=== PATIENT | female | born 1955 | race American Indian/Alaskan Native ===

== ENCOUNTER 2021-02-26 08:50 | Inpatient (IN) | payer BC ==
[2021-02-26] MEDS ORDERED: ACETAMINOPHEN 500 MG TAB PO ONE (09:27)
--- NOTE | 2021-02-26 09:31 | Emergency Department Report ---
ED General Adult HPI - General Chief complaint: Chest Pain Stated complaint: CHEST PAIN, SOB, FINGER TIPS NUMB Time Seen by Provider: 02/26/21 09:15 Source: patient Mode of arrival: Ambulatory Limitations: No Limitations - History of Present Illness Initial comments: Patient is a 65 years old female with history of hypertension. Patient presented to the ER complaining of generalized body ache, fever and chills since last night. Patient also reported diffuse chest pain and shortness of breath. Patient denied any nausea or vomiting. Patient stated that she has been tested negative last week and she received COVID-19 vaccine in August. Patient denied any abdominal pain. Severity scale (0 -10): 6 - Related Data Allergies Allergy/AdvReac Type Severity Reaction Status Date / Time lisinopril Allergy Unknown Verified 02/26/21 09:00 ED Review of Systems ROS: Stated complaint: CHEST PAIN, SOB, FINGER TIPS NUMB Other details as noted in HPI Comment: All other systems reviewed and negative Constitutional: chills, fever Respiratory: cough, shortness of breath. denies: SOB with exertion, SOB at rest Cardiovascular: denies: chest pain, palpitations Gastrointestinal: denies: abdominal pain, nausea, vomiting, diarrhea, constipation, hematemesis, melena, hematochezia Musculoskeletal: denies: back pain Neurological: weakness. denies: headache, numbness, paresthesias, confusion ED Physical Exam - General Limitations: No Limitations General appearance: alert, in no apparent distress - Head Head exam: Present: atraumatic, normocephalic, normal inspection - Eye Eye exam: Present: normal appearance, PERRL - ENT ENT exam: Present: normal exam, normal orophraynx, mucous membranes moist - Neck Neck exam: Present: normal inspection, full ROM. Absent: tenderness, meningismus - Respiratory Respiratory exam: Present: normal lung sounds bilaterally - Cardiovascular Cardiovascular Exam: Present: regular rate, normal rhythm, normal heart sounds - GI/Abdominal GI/Abdominal exam: Present: soft. Absent: distended, tenderness, guarding, rebound, rigid, organomegaly, mass, bruit, pulsatile mass, hernia - Extremities Exam Extremities exam: Present: normal inspection, full ROM, normal capillary refill. Absent: pedal edema, calf tenderness - Back Exam Back exam: Present: normal inspection, full ROM. Absent: CVA tenderness (R), CVA tenderness (L) - Neurological Exam Neurological exam: Present: alert, oriented X3, CN II-XII intact, normal gait, reflexes normal. Absent: motor sensory deficit - Psychiatric Psychiatric exam: Present: normal mood - Skin Skin exam: Present: warm, intact, normal color ED Course Vital Signs 02/26/21 02/26/21 02/26/21 09:05 12:18 12:19 Temperature 101.4 F H 98.3 F Pulse Rate 103 H 64 Respiratory 18 12 Rate Blood Pressure Blood Pressure 147/72 109/55 [Right] O2 Sat by Pulse 100 99 98 Oximetry 02/26/21 02/26/21 13:10 14:17 Temperature 98.3 F 97.8 F Pulse Rate 64 73 Respiratory 12 12 Rate Blood Pressure 109/55 Blood Pressure 111/73 [Right] O2 Sat by Pulse 99 99 Oximetry ED Medical Decision Making - Lab Data Result diagrams: 02/26/21 09:58 02/26/21 09:58 - EKG Data -: EKG Interpreted by Id EKG shows normal: sinus rhythm Rate: tachycardia - EKG Data Interpretation: no acute changes - Radiology Data Radiology results: report reviewed - Medical Decision Making Patient is a 65 years old female with history of hypertension. Patient presented to the ER complaining of generalized body ache, fever and chills since last night. Patient also reported diffuse chest pain and shortness of breath. Patient denied any nausea or vomiting. Patient stated that she has been tested negative last week and she received COVID-19 vaccine in August. Patient denied any abdominal pain. Patient received normal saline and Tylenol. Labs reviewed and showed a leukocytosis of 18,000. Chest x-ray showed infiltrate versus mass and a CT chest with contrast showed consolidation to the left upper lobe consistent with pneumonia. Patient received Rocephin and Zithromax. Oxygen saturation remained normal. I discussed the patient with Dr. Shah, he agreed to admit the patient to medical service for further management. Critical care attestation.: If time is entered above; I have spent that time in minutes in the direct care of this critically ill patient, excluding procedure time. ED Disposition Clinical Impression: Left upper lobe pneumonia, Fever, Suspected COVID-19 virus infection Disposition: ADMITTED INPATIENT Is pt being admited?: Yes Condition: Stable Instructions: Bacterial Pneumonia (ED) Referrals: PRIMARY CARE, [Primary Care Provider] - 3-5 Days
--- NOTE | 2021-02-26 10:41 | XRay Report ---
CHEST 2 VIEWS INDICATION / CLINICAL INFORMATION: Chest Pain. COMPARISON: None available. FINDINGS: SUPPORT DEVICES: None. HEART / MEDIASTINUM: No significant abnormality. LUNGS / PLEURA: Abnormal appearance of left hilum with opacity identified. This is asymmetric when co mpared with the right. Mild increased interstitial prominence in bilateral lungs ADDITIONAL FINDINGS: No significant additional findings. IMPRESSION: 1. Abnormal appearance of left hilum. Findings could represent infiltrate however left hilar mass cou ld also have this appearance. A CT is recommended for further evaluation. Signer Name: Ranjit Cox MD Signed: 02/26/2021 10:33 AM Workstation Name: [id number]
[2021-02-26 11:06] LABS: Hematocrit 38.7 % (30.3-42.9); Hemoglobin 12.7 gm/dl (10.1-14.3); Mean Corpuscular HGB Conc 33 % (30-34); Mean Corpuscular Volume 87 fl (79-97); Platelet Count 213 K/mm3 (140-440); Red Blood Count 4.48 M/mm3 (3.65-5.03)
[2021-02-26 11:30] LABS: Alanine Aminotransferase 16 units/L (7-56); Albumin 3.8 g/dL (3.9-5); BUN/Creatinine Ratio 19; Blood Urea Nitrogen 17 mg/dL (7-17); Hemolysis Index 17
[2021-02-26] MEDS ORDERED: cefTRIAXone/NS 1 GM/50 ML 1 GM/50 ML BAG IV ONE (11:44)
[2021-02-26] MEDS ORDERED: AZITHROMYCIN/NS 500 MG/250 ML 500 MG/250 ML BAG IV ONE (11:44)
[2021-02-26] MEDS ORDERED: SODIUM CHLORIDE 0.9% 1000 ML 1,000 ML IV ONE (11:45)
[2021-02-26] MEDS ORDERED: AZITHROMYCIN/NS 500 MG/250 ML 500 MG/250 ML BAG IV SCH (14:00)
--- NOTE | 2021-02-26 14:35 | Cat Scan Report ---
CT CHEST WITH CONTRAST INDICATION / CLINICAL INFORMATION: CHEST PAIN, ABNORMAL CXR. 95ml of Omnipaque 350 . TECHNIQUE: Axial CT images were obtained through the chest after IV contrast. All CT scans at this [facility] are performed using CT dose reduction for ALARA by means of automated exposure control. COMPARISON: Chest radiograph earlier on the same date. FINDINGS: HEART: No significant abnormality. CORONARY ARTERY CALCIFICATION: Mild. THORACIC AORTA: Mild atherosclerotic calcification without acute abnormality. MEDIASTINUM / ZANDRA: No significant mediastinal or hilar adenopathy. PLEURA: No pleural effusion. No pneumothorax. LUNGS: Dense consolidation of the anterior left upper lobe corresponding to radiographic abnormality. No definite central obstructing mass. Left lower lobe and right lung are clear. Mild centrilobular p ulmonary emphysema. ADDITIONAL FINDINGS: None. UPPER ABDOMEN: Chronic calcific pancreatitis without acute inflammation. Multiple bilateral large caryn al cysts. Hepatic steatosis. SKELETAL SYSTEM: No significant abnormality. IMPRESSION: 1. Dense consolidation of the anterior left upper lobe. Inflammatory process/pneumonia is favored. Re peat chest CT after treatment is recommended to assess for resolution of the findings. If pneumonia d oes not fit the clinical picture, then additional testing such as bronchoscopy may be helpful for fur ther evaluation. 2. Hepatic steatosis and chronic calcific pancreatitis without acute inflammation. Signer Name: Dionne Horowitz MD Signed: 02/26/2021 2:31 PM Workstation Name: [id number]
[2021-02-26 15:18] LABS: Bilirubin,Urine NEG (Negative); Blood,Urine SM (Negative); Color,Urine Colorless (Yellow); Protein,Urine <15 mg/dL mg/dL (Negative); Urobilinogen,Urine < 2.0 mg/dL (<2.0)
[2021-02-26 16:45] LABS: Band Neutrophils # (Manual) 1.7 K/mm3; RBC Morphology Normal; Total Cells Counted 100
[2021-02-26 16:46] LABS: Platelet Estimate Consistent w Auto
[2021-02-26] MEDS ORDERED: ACETAMINOPHEN 325 MG TAB PO PRN (20:55)
[2021-02-26] MEDS ORDERED: ONDANSETRON 4 MG/2 ML INJ IV PRN (20:55)
[2021-02-26] MEDS ORDERED: HYDROmorphone 1 MG/1 ML INJ IV PRN (20:57)
[2021-02-26] MEDS ORDERED: oxyCODONE /ACETAMINOPHEN 5-325MG TAB PO PRN (20:57)
[2021-02-26] MEDS ORDERED: D5W/0.9% NACL 1,000 ML IV SCH (21:00)
--- NOTE | 2021-02-26 21:04 | History and Physical Report ---
History of Present Illness Date of examination: 02/26/21 Date of admission: 02/26/21 15:14 Chief complaint: Fever chills and generalized body aches since yesterday History of present illness: 55-year-old female with history of hypertension and insulin-dependent diabetes comes in for generalized body aches fever and chills since yesterday. Patient also has diffuse chest pain and shortness of breath. Denies any nausea or vomiting. Cough productive of mucoid sputum. No exposure to coronavirus. Patient had a Covid vaccine in August. Patient was tested for Covid last week and was negative. Denies nausea vomiting. Denies loss of taste and smell. ED course--patient was hypoxic with oxygen saturation of around 88% on room air and chest x-ray was positive for left upper lobe pneumonia Review of Systems ROS: Constitutional fever and chills since yesterday HEENT no sore throat no post nasal drip no diplopia Neck no neck stiffness no lymph gland enlargement Chest and lungs cough productive of mucoid sputum CVS no chest pain no diaphoresis no palpitations GI no nausea no vomiting no diarrhea Genitourinary system no dysuria no flank pain Musculoskeletal system no muscle pains no joint pains [employer] no syncope no seizures Skin no rash no itching Psychiatric no depression no homicidal or suicidal tendencies Hematologic no lymphedema or bruising Endocrine no polydipsia no polyuria no cold intolerance no heat intolerance Past History Past Medical History: diabetes (Insulin-dependent diabetes), hypertension Past Surgical History: No surgical history Social history: lives with family, full code Family history: hypertension Medications and Allergies Allergies Allergy/AdvReac Type Severity Reaction Status Date / Time lisinopril Allergy Unknown Verified 02/26/21 21:12 Home Medications Medication Instructions Recorded Confirmed Last Taken Type Insulin Detemir [Levemir VIAL] 10 unit SQ QAM 02/27/21 02/27/21 02/26/21 History Insulin Lispro [Humalog 100 4 units SQ TID 02/27/21 02/27/21 02/25/21 21:00 History UNITS/ML Kwikpen] Metformin HCl [metFORMIN] 1,000 mg PO QAM 02/27/21 02/27/21 02/25/21 08:30 History amLODIPine [Norvasc] 10 mg PO DAILY 02/27/21 02/27/21 02/25/21 08:30 History carvediloL [Coreg] 12.5 mg PO BID 02/27/21 02/27/21 02/25/21 21:00 History Exam - Constitutional Vitals: Temp Pulse Resp BP Pulse Ox 100.0 F H 66 14 130/68 97 02/26/21 16:11 02/26/21 16:11 02/26/21 16:11 02/26/21 16:11 02/26/21 16:11 General appearance: Present: mild distress, well-nourished - EENT Eyes: Present: PERRL ENT: hearing intact, clear oral mucosa - Neck Neck: Present: supple, normal ROM - Respiratory Respiratory effort: normal Respiratory: bilateral: CTA, rhonchi (Scattered) - Cardiovascular Heart rate: 78 Rhythm: regular Heart Sounds: Present: S1 & S2. Absent: rub, click - Extremities Extremities: pulses symmetrical, No edema Peripheral Pulses: within normal limits - Abdominal General gastrointestinal: Present: soft, non-tender, non-distended, normal bowel sounds Female genitourinary: Present: normal - Rectal Rectal Exam: deferred - Integumentary Integumentary: Present: clear, warm, dry - Musculoskeletal Musculoskeletal: gait normal, strength equal bilaterally - Psychiatric Psychiatric: appropriate mood/affect, intact judgment & insight - Neurologic Neurologic: CNII-XII intact, moves all extremities - Allied Health Allied health notes reviewed: nursing, case management HEART Score - HEART Score History: Slightly suspicious Age: 45-65 Risk factors: 1-2 risk factors Troponin: Troponin T < 0.010 ng/mL (0.00-0.029) 02/26/21 09:58 Troponin: < normal limit - Critical Actions Critical Actions: 0-3 pts:0.9-1.7%risk of adverse cardiac event.Candidate for discharge Results - Labs CBC & Chem 7: 02/27/21 04:43 02/27/21 04:43 Labs: Laboratory Last Values WBC 18.4 K/mm3 (4.5-11.0) H 02/26/21 09:58 RBC 4.48 M/mm3 (3.65-5.03) 02/26/21 09:58 Hgb 12.7 gm/dl (10.1-14.3) 02/26/21 09:58 Hct 38.7 % (30.3-42.9) 02/26/21 09:58 MCV 87 fl (79-97) 02/26/21 09:58 MCH 28 pg (28-32) 02/26/21 09:58 MCHC 33 % (30-34) 02/26/21 09:58 RDW 15.0 % (13.2-15.2) 02/26/21 09:58 Plt Count 213 K/mm3 (140-440) 02/26/21 09:58 Add Manual Diff Complete 02/26/21 09:58 Total Counted 100 02/26/21 09:58 Seg Neuts % (Manual) 75.0 % (40.0-70.0) H 02/26/21 09:58 Band Neutrophils % 9.0 % 02/26/21 09:58 Lymphocytes % (Manual) 7.0 % (13.4-35.0) L 02/26/21 09:58 Monocytes % (Manual) 9.0 % (0.0-7.3) H 02/26/21 09:58 Nucleated RBC % Not Reportable 02/26/21 09:58 Seg Neutrophils # Man 13.8 K/mm3 (1.8-7.7) H 02/26/21 09:58 Band Neutrophils # 1.7 K/mm3 02/26/21 09:58 Lymphocytes # (Manual) 1.3 K/mm3 (1.2-5.4) 02/26/21 09:58 Abs React Lymphs (Man) 0.0 K/mm3 02/26/21 09:58 Monocytes # (Manual) 1.7 K/mm3 (0.0-0.8) H 02/26/21 09:58 Eosinophils # (Manual) 0.0 K/mm3 (0.0-0.4) 02/26/21 09:58 Basophils # (Manual) 0.0 K/mm3 (0.0-0.1) 02/26/21 09:58 Metamyelocytes # 0.0 K/mm3 02/26/21 09:58 Myelocytes # 0.0 K/mm3 02/26/21 09:58 Promyelocytes # 0.0 K/mm3 02/26/21 09:58 Blast Cells # 0.0 K/mm3 02/26/21 09:58 WBC Morphology Not Reportable 02/26/21 09:58 Hypersegmented Neuts Not Reportable 02/26/21 09:58 Hyposegmented Neuts Not Reportable 02/26/21 09:58 Hypogranular Neuts Not Reportable 02/26/21 09:58 Smudge Cells Not Reportable 02/26/21 09:58 Toxic Granulation Not Reportable 02/26/21 09:58 Toxic Vacuolation Not Reportable 02/26/21 09:58 Dohle Bodies Not Reportable 02/26/21 09:58 Pelger-Huet Anomaly Not Reportable 02/26/21 09:58 Gabriela Rods Not Reportable 02/26/21 09:58 Platelet Estimate Consistent w auto 02/26/21 09:58 Clumped Platelets Not Reportable 02/26/21 09:58 Plt Clumps, EDTA Not Reportable 02/26/21 09:58 Large Platelets Not Reportable 02/26/21 09:58 Giant Platelets Not Reportable 02/26/21 09:58 Platelet Satelliting Not Reportable 02/26/21 09:58 Plt Morphology Comment Not Reportable 02/26/21 09:58 RBC Morphology Normal 02/26/21 09:58 Dimorphic RBCs Not Reportable 02/26/21 09:58 Polychromasia Not Reportable 02/26/21 09:58 Hypochromasia Not Reportable 02/26/21 09:58 Poikilocytosis Not Reportable 02/26/21 09:58 Anisocytosis Not Reportable 02/26/21 09:58 Microcytosis Not Reportable 02/26/21 09:58 Macrocytosis Not Reportable 02/26/21 09:58 Spherocytes Not Reportable 02/26/21 09:58 Pappenheimer Bodies Not Reportable 02/26/21 09:58 Sickle Cells Not Reportable 02/26/21 09:58 Target Cells Not Reportable 02/26/21 09:58 Tear Drop Cells Not Reportable 02/26/21 09:58 Ovalocytes Not Reportable 02/26/21 09:58 Helmet Cells Not Reportable 02/26/21 09:58 [place] Bodies Not Reportable 02/26/21 09:58 [place] Rings Not Reportable 02/26/21 09:58 [place] Cells Not Reportable 02/26/21 09:58 Bite Cells Not Reportable 02/26/21 09:58 Crenated Cell Not Reportable 02/26/21 09:58 Elliptocytes Not Reportable 02/26/21 09:58 Acanthocytes (Spur) Not Reportable 02/26/21 09:58 Rouleaux Not Reportable 02/26/21 09:58 Hemoglobin C Crystals Not Reportable 02/26/21 09:58 Schistocytes Not Reportable 02/26/21 09:58 Malaria parasites Not Reportable 02/26/21 09:58 [place] Bodies Not Reportable 02/26/21 09:58 Hem Pathologist Commnt No 02/26/21 09:58 Sodium 135 mmol/L (137-145) L 02/26/21 09:58 Potassium 3.9 mmol/L (3.6-5.0) 02/26/21 09:58 Chloride 100.4 mmol/L (98-107) 02/26/21 09:58 Carbon Dioxide 22 mmol/L (22-30) 02/26/21 09:58 Anion Gap 17 mmol/L 02/26/21 09:58 BUN 17 mg/dL (7-17) 02/26/21 09:58 Creatinine 0.9 mg/dL (0.6-1.2) 02/26/21 09:58 Estimated GFR > 60 ml/min 02/26/21 09:58 BUN/Creatinine Ratio 19 % 02/26/21 09:58 Glucose 327 mg/dL (65-100) H 02/26/21 09:58 Lactic Acid 1.90 mmol/L (0.7-2.0) 02/26/21 09:58 Calcium 9.0 mg/dL (8.4-10.2) 02/26/21 09:58 Total Bilirubin 0.40 mg/dL (0.1-1.2) 02/26/21 09:58 AST 17 units/L (5-40) 02/26/21 09:58 ALT 16 units/L (7-56) 02/26/21 09:58 Alkaline Phosphatase 143 units/L (35-129) H 02/26/21 09:58 Troponin T < 0.010 ng/mL (0.00-0.029) 02/26/21 09:58 Total Protein 7.1 g/dL (6.3-8.2) 02/26/21 09:58 Albumin 3.8 g/dL (3.9-5) L 02/26/21 09:58 Albumin/Globulin Ratio 1.2 % 02/26/21 09:58 Lipase 8 units/L (13-60) L 02/26/21 09:58 Urine Color Colorless (Yellow) 02/26/21 Unknown Urine Turbidity Clear (Clear) 02/26/21 Unknown Urine pH 6.0 (5.0-7.0) 02/26/21 Unknown Ur Specific [place] 1.009 (1.003-1.030) 02/26/21 Unknown Urine Protein <15 mg/dl mg/dL (Negative) 02/26/21 Unknown Urine Glucose (UA) >=500 mg/dL (Negative) 02/26/21 Unknown Urine Ketones Neg mg/dL (Negative) 02/26/21 Unknown Urine Blood Sm (Negative) 02/26/21 Unknown Urine Nitrite Neg (Negative) 02/26/21 Unknown Urine Bilirubin Neg (Negative) 02/26/21 Unknown Urine Urobilinogen < 2.0 mg/dL (<2.0) 02/26/21 Unknown Ur Leukocyte Esterase Sm (Negative) 02/26/21 Unknown Urine WBC (Auto) 5.0 /HPF (0.0-6.0) 02/26/21 Unknown Urine RBC (Auto) 1.0 /HPF (0.0-6.0) 02/26/21 Unknown U Epithel Cells (Auto) < 1.0 /HPF (0-13.0) 02/26/21 Unknown Short CBC 02/26/21 02/27/21 Range/Units 09:58 04:43 WBC 18.4 H 21.4 H (4.5-11.0) K/mm3 Hgb 12.7 12.3 (10.1-14.3) gm/dl Hct 38.7 37.4 (30.3-42.9) % Plt Count 213 207 (140-440) K/mm3 BMP 02/26/21 02/26/21 02/27/21 09:58 23:12 04:43 Sodium 135 L 140 Potassium 3.9 3.6 Chloride 100.4 102.9 Carbon Dioxide 22 24 BUN 17 18 H Creatinine 0.9 0.9 Glucose 327 H 260 H 224 H Calcium 9.0 9.0 Cardiac Enzymes 02/26/21 Range/Units 09:58 Troponin T < 0.010 (0.00-0.029) ng/mL Liver Function 02/26/21 02/27/21 Range/Units 09:58 04:43 Total Bilirubin 0.40 0.40 (0.1-1.2) mg/dL AST 17 14 (5-40) units/L ALT 16 16 (7-56) units/L Alkaline Phosphatase 143 H 136 H (35-129) units/L Albumin 3.8 L 3.8 L (3.9-5) g/dL Urine 02/26/21 Range/Units Unknown Urine Color Colorless (Yellow) Urine pH 6.0 (5.0-7.0) Ur Specific [place] 1.009 (1.003-1.030) Urine Protein <15 mg/dl (Negative) mg/dL Urine Glucose (UA) >=500 (Negative) mg/dL Microbiology: Microbiology 02/26/21 09:57 Peripheral/Venous Blood Culture - Preliminary Culture in Progress 02/26/21 09:57 Peripheral/Venous Blood Culture - Preliminary Culture in Progress - Imaging and Cardiology EKG: report reviewed (Sinus rhythm no acute ST-T wave changes) Chest x-ray: report reviewed Imaging and Cardiology: Chest x-ray Abnormal appearance of left hilus and findings could represent infiltrate however left hilar mass could also have this appearance a CT is recommended for further evaluation Assessment and Plan Advance Directives: Yes (Full code) VTE prophylaxis?: Chemical Plan of care discussed with patient/family: Yes - Patient Problems (1) Sepsis Current Visit: Yes Status: Acute Plan to address problem: Patient has a high white count of 18,400 IV antibiotics initiated Patient has a left hilar opacity and upper lobe pneumonia CT of the chest requested ID consult requested (2) Left upper lobe pneumonia Current Visit: Yes Status: Acute Qualifiers: Pneumonia type: due to unspecified organism Qualified Code(s): J18.9 - Pneumonia, unspecified organism Plan to address problem: IV antibiotics initiated Check CT chest for further delineation of the left side hilar opacity (3) Suspected COVID-19 virus infection Current Visit: Yes Status: Acute Plan to address problem: Patient is vaccinated in August Coronavirus PCR in a.m. (4) IDDM (insulin dependent diabetes mellitus) Current Visit: Yes Status: Chronic Plan to address problem: Uncontrolled Increase Levemir from 10 units to 30 units (5) Hypertension Current Visit: Yes Status: Chronic Qualifiers: Hypertension type: primary hypertension Qualified Code(s): I10 - Essential (primary) hypertension Plan to address problem: Continue antihypertensives and adjust medications as necessary (6) DVT prophylaxis Current Visit: Yes Status: Acute Plan to address problem: On Lovenox and GI prophylaxis
[2021-02-26] MEDS ORDERED: FAMOTIDINE 20 MG/2 ML INJ IV SCH (22:00)
[2021-02-26] MEDS ORDERED: dexAMETHasone 4 MG/ML VIAL IV SCH (22:00)
[2021-02-26] MEDS: ENOXAPARIN 40 MG/0.4 ML INJ SUB-Q SCH (23:02)
[2021-02-27] MEDS ORDERED: INSULIN LISPRO 100 UNIT/ML SUB-Q ONE (00:09)
[2021-02-27 02:08] LABS: C-Reactive Protein 25.7 mg/dL (0.00-1.30)
[2021-02-27 05:28] LABS: Hematocrit 37.4 % (30.3-42.9); Hemoglobin 12.3 gm/dl (10.1-14.3); Mean Corpuscular HGB Conc 33 % (30-34); Mean Corpuscular Volume 88 fl (79-97); Platelet Count 207 K/mm3 (140-440); Red Blood Count 4.25 M/mm3 (3.65-5.03); Red Cell Distribution Width 15.6 % (13.2-15.2)
[2021-02-27 05:45] LABS: Alanine Aminotransferase 16 units/L (7-56); Albumin 3.8 g/dL (3.9-5); BUN/Creatinine Ratio 20; Blood Urea Nitrogen 18 mg/dL (7-17); Hemolysis Index 1
[2021-02-27] MEDS: SODIUM CHLORIDE 0.9% 1000 ML 1,000 ML IV SCH (06:17)
[2021-02-27] MEDS: INSULIN LISPRO 100 UNIT/ML SUB-Q SCH ×4 (08:52→22:47)
[2021-02-27] MEDS: metFORMIN XR 500MG TAB PO SCH (08:52)
[2021-02-27] MEDS: INSULIN GLARGINE 100 UNITS/ML SUB-Q SCH (08:53)
[2021-02-27] MEDS ORDERED: NON-FORMULARY EACH (Insulin Detemir [Levemir Vial] 100 UNIT/ML Vial) SQ SCH (10:00)
[2021-02-27] MEDS ORDERED: NON-FORMULARY EACH (Metformin Hcl [Metformin] 1,000 MG Tablet) PO SCH (10:00)
[2021-02-27] MEDS ORDERED: INSULIN GLARGINE 100 UNITS/ML SUB-Q SCH (10:00)
[2021-02-27] MEDS ORDERED: dexAMETHasone 4 MG/ML VIAL IV SCH (10:00)
[2021-02-27 10:42] LABS: Total Cells Counted 100
[2021-02-27] MEDS: carvediloL 12.5 MG TAB PO SCH ×2 (10:42→22:46)
[2021-02-27] MEDS: amLODIPine 10 MG TAB PO SCH (10:42)
[2021-02-27] MEDS: ENOXAPARIN 40 MG/0.4 ML INJ SUB-Q SCH (10:42)
[2021-02-27] MEDS: FAMOTIDINE 20 MG TAB PO SCH ×2 (10:42→22:45)
[2021-02-27 10:43] LABS: Platelet Estimate Consistent w Auto; RBC Morphology Normal
[2021-02-27] MEDS ORDERED: cefTRIAXone/NS 1 GM/50 ML 1 GM/50 ML BAG IV SCH (14:00)
--- NOTE | 2021-02-27 14:49 | Consultation ---
History of Present Illness - Reason for Consult Consult date: 02/27/21 pneumonia, sepsis Requesting physician: RICARDA PEREZ - History of Present Illness The patient is a 65-year-old female with hypertension, diabetes admitted with generalized body aches, fever and chills. Also having diffuse chest pain and shortness of breath. Patient received Covid vaccination in August. Found to have a fever on admission of 101.4 F. Labs revealed leukocytosis of 18.4, D- dimer 603, HbA1c 11.9, CRP 25.7, procalcitonin 4.03, ferritin 124.6. COVID-19 PCR is pending, infectious diseases consulted for additional evaluation. Chest x-ray revealed left hilar infiltrate. Review of Systems: reviewed in the chart, unable to obtain, minimize risk of transmission Past History Past Medical History: diabetes (Insulin-dependent diabetes), hypertension Past Surgical History: No surgical history Social history: lives with family, full code Family history: hypertension Medications and Allergies Allergies Allergy/AdvReac Type Severity Reaction Status Date / Time lisinopril Allergy Unknown Verified 02/26/21 21:12 Home Medications Medication Instructions Recorded Confirmed Last Taken Type Insulin Detemir [Levemir VIAL] 10 unit SQ QAM 02/27/21 02/27/21 02/26/21 History Insulin Lispro [Humalog 100 4 units SQ TID 02/27/21 02/27/21 02/25/21 21:00 History UNITS/ML Kwikpen] Metformin HCl [metFORMIN] 1,000 mg PO QAM 02/27/21 02/27/21 02/25/21 08:30 History amLODIPine [Norvasc] 10 mg PO DAILY 02/27/21 02/27/21 02/25/21 08:30 History carvediloL [Coreg] 12.5 mg PO BID 02/27/21 02/27/21 02/25/21 21:00 History Active Meds: Active Medications Acetaminophen (Acetaminophen 325 Mg Tab) 650 mg PO Q4H PRN PRN Reason: Pain MILD(1-3)/Fever >100.5/SOLIS Amlodipine Besylate (Amlodipine 10 Mg Tab) 10 mg PO DAILY [facility] Last Admin: 02/27/21 10:42 Dose: 10 mg Documented by: Carvedilol (Carvedilol 12.5 Mg Tab) 12.5 mg PO BID [facility] Last Admin: 02/27/21 10:42 Dose: 12.5 mg Documented by: Enoxaparin Sodium (Enoxaparin 40 Mg/0.4 Ml Inj) 40 mg SUB-Q QDAY [facility] Last Admin: 02/27/21 10:42 Dose: 40 mg Documented by: Famotidine (Famotidine 20 Mg Tab) 20 mg PO BID [facility] Last Admin: 02/27/21 10:42 Dose: 20 mg Documented by: Hydromorphone HCl (Hydromorphone 1 Mg/1 Ml Inj) 0.5 mg IV Q3H PRN PRN Reason: Pain , Severe (7-10) Azithromycin (Zithromax/Ns) 500 mg in 250 mls @ 250 mls/hr IV Q24H [facility] Stop: 03/02/21 14:59 Sodium Chloride (Nacl 0.9% 1000 Ml) 1,000 mls @ 100 mls/hr IV DIRECT [facility] Last Admin: 02/27/21 06:17 Dose: 100 mls/hr Documented by: Ceftriaxone Sodium (Rocephin/Ns 2 Gm/100 Ml) 2 gm in 100 mls @ 200 mls/hr IV Q24HR [facility]; Protocol Insulin Glargine (Insulin Glargine 100 Units/Ml) 30 units SUB-Q QAMDIAB [facility] Last Admin: 02/27/21 08:53 Dose: 30 units Documented by: Insulin Human Lispro (Insulin Lispro 100 Unit/Ml) 0 unit SUB-Q ACHS [facility]; Protocol Last Admin: 02/27/21 12:12 Dose: 8 unit Documented by: Metformin HCl (Metformin Xr 500mg Tab) 1,000 mg PO QDDIAB [facility] Last Admin: 02/27/21 08:52 Dose: 1,000 mg Documented by: Ondansetron HCl (Ondansetron 4 Mg/2 Ml Inj) 4 mg IV Q8H PRN PRN Reason: Nausea And Vomiting Oxycodone/Acetaminophen (Oxycodone /Acetaminophen 5-325mg Tab) 1 tab PO Q6H PRN PRN Reason: Pain, Moderate (4-6) Sodium Chloride (Sodium Chloride 0.9% 10 Ml Flush Syringe) 10 ml IV BID [facility] Last Admin: 02/27/21 10:43 Dose: 10 ml Documented by: Sodium Chloride (Sodium Chloride 0.9% 10 Ml Flush Syringe) 10 ml IV PRN PRN PRN Reason: LINE FLUSH Physical Examination - Physical Exam Narrative exam: Physical Exam (reviewed in chart to minimize risk of transmission) Constitutional: deferred Head, Ears, Nose: deferred Eyes: deferred Neck: deferred Oral: deferred Cardiovascular: deferred Respiratory: deferred GI: deferred Musculoskeletal: deferred Skin: deferred Hem/Lymphatic: deferred Psych: deferred Neurological: deferred - Constitutional Vitals: Vital Signs Temp Pulse Resp BP Pulse Ox 97.9 F 91 H 22 136/75 100 02/27/21 11:29 02/27/21 11:29 02/27/21 11:29 02/27/21 11:29 02/27/21 11:29 Temperature -Last 24 Hours Temperature 97.9 F Temperature 98.1 F Temperature 98.1 F Temperature 98.9 F Temperature 98.3 F Temperature 98.9 F Temperature 100.0 F Results - Labs CBC & Chem 7: 02/27/21 04:43 02/27/21 04:43 Labs: Abnormal lab results 02/26/21 02/26/21 02/26/21 Range/Units 09:58 23:12 23:12 WBC (4.5-11.0) K/mm3 RDW (13.2-15.2) % Seg Neuts % (Manual) 75.0 H (40.0-70.0) % Lymphocytes % (Manual) 7.0 L (13.4-35.0) % Monocytes % (Manual) 9.0 H (0.0-7.3) % Seg Neutrophils # Man 13.8 H (1.8-7.7) K/mm3 Monocytes # (Manual) 1.7 H (0.0-0.8) K/mm3 D-Dimer 603.16 H (0-234) ng/mlDDU BUN (7-17) mg/dL Glucose 260 H (65-100) mg/dL POC Glucose (70-105) mg/dL Hemoglobin A1c (4-6) % Alkaline Phosphatase (35-129) units/L Lactate Dehydrogenase 202 H (91-180) units/L C-Reactive Protein 25.70 H (0.00-1.30) mg/dL Albumin (3.9-5) g/dL 02/27/21 02/27/2102/27/21 Range/Units 00:02 04:43 04:43 WBC 21.4 H (4.5-11.0) K/mm3 RDW 15.6 H (13.2-15.2) % Seg Neuts % (Manual) (40.0-70.0) % Lymphocytes % (Manual) 10.0 L (13.4-35.0) % Monocytes % (Manual) 9.0 H (0.0-7.3) % Seg Neutrophils # Man 14.3 H (1.8-7.7) K/mm3 Monocytes # (Manual) 1.9 H (0.0-0.8) K/mm3 D-Dimer (0-234) ng/mlDDU BUN 18 H (7-17) mg/dL Glucose 224 H (65-100) mg/dL POC Glucose 323 H (70-105) mg/dL Hemoglobin A1c (4-6) % Alkaline Phosphatase 136 H (35-129) units/L Lactate Dehydrogenase (91-180) units/L C-Reactive Protein (0.00-1.30) mg/dL Albumin 3.8 L (3.9-5) g/dL 02/27/21 02/27/21 02/27/21 Range/Units 04:43 08:39 11:26 WBC (4.5-11.0) K/mm3 RDW (13.2-15.2) % Seg Neuts % (Manual) (40.0-70.0) % Lymphocytes % (Manual) (13.4-35.0) % Monocytes % (Manual) (0.0-7.3) % Seg Neutrophils # Man (1.8-7.7) K/mm3 Monocytes # (Manual) (0.0-0.8) K/mm3 D-Dimer (0-234) ng/mlDDU BUN (7-17) mg/dL Glucose (65-100) mg/dL POC Glucose 306 H 510 H (70-105) mg/dL Hemoglobin A1c 11.9 H (4-6) % Alkaline Phosphatase (35-129) units/L Lactate Dehydrogenase (91-180) units/L C-Reactive Protein (0.00-1.30) mg/dL Albumin (3.9-5) g/dL - Imaging and Cardiology Chest x-ray: report reviewed, image reviewed (left hilar pneumonia) Assessment and Plan Cultures: SARS CoV2 PCR: Pending 02/26/2021 blood culture: No growth A/P: 65-year-old female with hypertension, diabetes admitted with generalized body aches, fever and chills. Also having diffuse chest pain and shortness of breath: #Sepsis, secondary to left-sided pneumonia: likely bacterial. Labs revealed leukocytosis of 18.4, D-dimer 603, HbA1c 11.9, CRP 25.7, procalcitonin 4.03, ferritin 124.6. #Acute hypoxic respiratory failure: on NC. #COVID-19 PUI: Low suspicion #Diabetes, uncontrolled Recs: Low suspicion for COVID-19, follow-up PCR. Steroids discontinued, will restart if Covid positive Sputum culture ordered Ceftriaxone, azithromycin x 5 days MRSA nasal PCR ordered Tre Aguilera MD, FACP [facility] O: [phone] F: [phone]
[2021-02-27] MEDS: AZITHROMYCIN/NS 500 MG/250 ML 500 MG/250 ML BAG IV SCH (14:53)
--- NOTE | 2021-02-27 15:06 | Progress Note ---
Assessment and Plan -- Sepsis Patient has a high white count of 18,400 with chest x-ray suggestive of left upper lobe pneumonia IV antibiotics initiated ID consult requested, cough ordered for Covid PCR -- Left upper lobe pneumonia IV antibiotics initiated, rule out Covid Check CT chest suggestive of dense right upper lobe consolidation Need to repeat CT chest after completion of antibiotic treatment -- Suspected COVID-19 virus infection Patient is vaccinated in August Coronavirus PCR result pending -- IDDM (insulin dependent diabetes mellitus) Uncontrolled, Increased Levemir from 10 units to 30 units Continue to adjust doses for better glycemic control, add sliding scale -- Hypertension Continue antihypertensives and adjust medications as necessary -- DVT prophylaxis On Lovenox and GI prophylaxis Daily clinical course: 02/27/21 follow-up Covid PCR. Steroids discontinued, will restart if Covid positive Sputum culture ordered, continue ceftriaxone, azithromycin x 5 days. MRSA nasal PCR ordered. ID following Subjective Date of service: 02/27/21 Interval history: Patient seen and examined. Medical records and medication list reviewed. No acute event overnight noted by the RN. Patient denies any chest pain complains of cough. Has short of breath on moderate exertion, patient is tolerating diet. Discussed plan of care at bedside with patient. Objective - Exam Narrative Exam: GENERAL: well-developed and well-nourished elderly -Belarusian female reginaldo romero on bed appeared to be in no discomfort. HEENT: Normocephalic. Atraumatic. No conjunctival congestion or icterus. Patient has moist mucous membranes. NECK: Supple. Trachea midline. CHEST/LUNGS: Few crackles auscultated bilaterally, breathing nonlabored, on supplemental O2, no wheezes HEART/CARDIOVASCULAR: Regular in rate and rhythm. S1 and S2 positive. ABDOMEN: Abdomen is soft, nontender. Patient has normal bowel sounds. SKIN: There is no rash. Warm and dry. NEURO: No focal motor deficit. Follows command. MUSCULOSKELETAL: No joint effusion or tenderness. EXTRIMITY: No edema, no cyanosis or clubbing. PSYCH: Cooperative. - Constitutional Vitals: Vital Signs - 12hr 02/27/21 02/27/21 02/27/21 04:51 04:55 10:42 Temperature 98.1 F 98.1 F Pulse Rate 69 Respiratory 20 20 Rate Blood Pressure 145/71 145/71 O2 Sat by Pulse 97 Oximetry 02/27/21 11:29 Temperature 97.9 F Pulse Rate 91 H Respiratory 22 Rate Blood Pressure 136/75 O2 Sat by Pulse 100 Oximetry - Labs CBC & Chem 7: 03/01/21 05:32 02/27/21 14:46 Labs: Abnormal lab results 02/26/21 02/26/21 02/26/21 Range/Units 09:58 23:12 23:12 WBC (4.5-11.0) K/mm3 RDW (13.2-15.2) % Seg Neuts % (Manual) 75.0 H (40.0-70.0) % Lymphocytes % (Manual) 7.0 L (13.4-35.0) % Monocytes % (Manual) 9.0 H (0.0-7.3) % Seg Neutrophils # Man 13.8 H (1.8-7.7) K/mm3 Monocytes # (Manual) 1.7 H (0.0-0.8) K/mm3 D-Dimer 603.16 H (0-234) ng/mlDDU BUN (7-17) mg/dL Glucose 260 H (65-100) mg/dL POC Glucose (70-105) mg/dL Hemoglobin A1c (4-6) % Alkaline Phosphatase (35-129) units/L Lactate Dehydrogenase 202 H (91-180) units/L C-Reactive Protein 25.70 H (0.00-1.30) mg/dL Albumin (3.9-5) g/dL 02/27/21 02/27/21 02/27/21 Range/Units 00:02 04:43 04:43 WBC 21.4 H (4.5-11.0) K/mm3 RDW 15.6 H (13.2-15.2) % Seg Neuts % (Manual) (40.0-70.0) % Lymphocytes % (Manual) 10.0 L (13.4-35.0) % Monocytes % (Manual) 9.0 H (0.0-7.3) % Seg Neutrophils # Man 14.3 H (1.8-7.7) K/mm3 Monocytes # (Manual) 1.9 H (0.0-0.8) K/mm3 D-Dimer (0-234) ng/mlDDU BUN 18 H (7-17) mg/dL Glucose 224 H (65-100) mg/dL POC Glucose 323 H (70-105) mg/dL Hemoglobin A1c (4-6) % Alkaline Phosphatase 136 H (35-129) units/L Lactate Dehydrogenase (91-180) units/L C-Reactive Protein (0.00-1.30) mg/dL Albumin 3.8 L (3.9-5) g/dL 02/27/21 02/27/21 02/27/21 Range/Units 04:43 08:39 11:26 WBC (4.5-11.0) K/mm3 RDW (13.2-15.2) % Seg Neuts % (Manual) (40.0-70.0) % Lymphocytes % (Manual) (13.4-35.0) % Monocytes % (Manual) (0.0-7.3) % Seg Neutrophils # Man (1.8-7.7) K/mm3 Monocytes # (Manual) (0.0-0.8) K/mm3 D-Dimer (0-234) ng/mlDDU BUN (7-17) mg/dL Glucose (65-100) mg/dL POC Glucose 306 H 510 H (70-105) mg/dL Hemoglobin A1c 11.9 H (4-6) % Alkaline Phosphatase (35-129) units/L Lactate Dehydrogenase (91-180) units/L C-Reactive Protein (0.00-1.30) mg/dL Albumin (3.9-5) g/dL HEART Score - HEART Score Age: 45-65 Risk factors: 1-2 risk factors Troponin: Troponin T < 0.010 ng/mL (0.00-0.029) 02/26/21 09:58 Troponin: < normal limit - Critical Actions Critical Actions: 0-3 pts:0.9-1.7%risk of adverse cardiac event.Candidate for discharge
[2021-02-27] MEDS: cefTRIAXone/NS 2 GM/100 ML 2 GM/100 ML BAG IV SCH (16:12)
[2021-02-28] MEDS: SODIUM CHLORIDE 0.9% 1000 ML 1,000 ML IV SCH ×2 (05:48→22:54)
[2021-02-28] MEDS: ENOXAPARIN 40 MG/0.4 ML INJ SUB-Q SCH (09:33)
[2021-02-28] MEDS: INSULIN GLARGINE 100 UNITS/ML SUB-Q SCH (09:33)
[2021-02-28] MEDS: metFORMIN XR 500MG TAB PO SCH (09:34)
[2021-02-28] MEDS: cefTRIAXone/NS 2 GM/100 ML 2 GM/100 ML BAG IV SCH (09:34)
[2021-02-28] MEDS: FAMOTIDINE 20 MG TAB PO SCH ×2 (09:34→22:56)
[2021-02-28] MEDS: INSULIN LISPRO 100 UNIT/ML SUB-Q SCH ×4 (09:37→22:54)
[2021-02-28] MEDS: amLODIPine 10 MG TAB PO SCH (09:43)
[2021-02-28] MEDS: carvediloL 12.5 MG TAB PO SCH ×2 (09:44→22:55)
--- NOTE | 2021-02-28 11:57 | Progress Note ---
Assessment and Plan Cultures: SARS CoV2 PCR: negative 02/26/2021 blood culture: No growth A/P: 65-year-old female with hypertension, diabetes admitted with generalized body aches, fever and chills. Also having diffuse chest pain and shortness of breath: #Sepsis, secondary to left-sided pneumonia: likely bacterial, community acquired. Labs revealed leukocytosis of 18.4, D-dimer 603, HbA1c 11.9, CRP 25.7, procalcitonin 4.03, ferritin 124.6. #Acute hypoxic respiratory failure: on NC. #Diabetes, uncontrolled Recs: f/u sputum culture ordered yesterday f/u MRSA nasal PCR ordered yesterday continue ceftriaxone, azithromycin x 5 days recheck WBC in AM, if continues to improve, can discharge tomorrow on PO abx Tre Aguilera MD, FACP [facility] O: [phone] F: [phone] Subjective Date of service: 02/28/21 Interval history: Low-grade fever. COVID-19 PCR is negative. Breathing better. Cough present with whitish sputum with occasional blood streaking. Objective - Exam Narrative Exam: Physical Exam: Constitutional: Alert, cooperative. No acute distress Head, Ears, Nose: Normocephalic, atraumatic. External ears, nose normal Eyes: Conjunctivae/corneas clear. No icterus. No ptosis. Neck: Supple, no meningeal signs Cardiovascular: S1, S2 + Respiratory: AE fair b/l GI: Soft, non-tender; bowel sounds normal. No peritoneal signs Musculoskeletal: No pedal edema, no cyanosis. Skin: No rash or abscess Hem/Lymphatic: No palpable cervical or supraclavicular nodes. No lymphangitis Psych: Mood ok. Affect normal Neurological: Awake, alert, oriented. No gross abnormality - Constitutional Vitals: Vital Signs Temp Pulse Resp BP Pulse Ox 98.1 F 62 18 141/68 100 02/28/21 05:07 02/28/21 09:44 02/28/21 05:07 02/28/21 09:44 02/28/21 05:07 Temperature -Last 24 Hours Temperature 98.1 F Temperature 100.0 F Temperature 98.1 F - Labs CBC & Chem 7: 02/27/21 04:43 02/27/21 14:46 Labs: Abnormal lab results 02/27/21 02/27/21 02/27/21 Range/Units 14:46 17:12 21:41 Glucose 459 H (65-100) mg/dL POC Glucose 332 H 437 H (70-105) mg/dL 02/28/21 Range/Units 07:46 Glucose (65-100) mg/dL POC Glucose 336 H (70-105) mg/dL
--- NOTE | 2021-02-28 15:21 | Progress Note ---
Assessment and Plan -- Sepsis Patient has a high white count of 18,400 with chest x-ray suggestive of left upper lobe pneumonia IV antibiotics initiated ID consult requested, cough ordered for Covid PCR -- Left upper lobe pneumonia IV antibiotics initiated, rule out Covid Check CT chest suggestive of dense right upper lobe consolidation Need to repeat CT chest after completion of antibiotic treatment -- Suspected COVID-19 virus infection Patient is vaccinated in August Coronavirus PCR result pending -- IDDM (insulin dependent diabetes mellitus) Uncontrolled, Increased Levemir from 10 units to 30 units Continue to adjust doses for better glycemic control, add sliding scale -- Hypertension Continue antihypertensives and adjust medications as necessary -- DVT prophylaxis On Lovenox and GI prophylaxis Daily clinical course: 02/27/21 follow-up Covid PCR. Steroids discontinued, will restart if Covid positive Sputum culture ordered, continue ceftriaxone, azithromycin x 5 days. MRSA nasal PCR ordered. ID following 02/28/21; f/u sputum culture and MRSA nasal PCR ordered yesterday. continue ceftriaxone, azithromycin x 5 days. ID recommended to recheck WBC in AM, if continues to improve, can discharge tomorrow on PO abx Subjective Date of service: 02/28/21 Interval history: Patient seen and examined. Medical records and medication list reviewed. No acute event overnight noted by the RN. Patient denies any chest pain complains of cough. Improved short of breath, patient is tolerating diet. MRSA culture is pending, patient afebrile Discussed plan of care at bedside with patient. Objective - Exam Narrative Exam: GENERAL: well-developed and well-nourished elderly -Malagasy female lying on bed appeared to be in no discomfort. HEENT: Normocephalic. Atraumatic. No conjunctival congestion or icterus. Patient has moist mucous membranes. NECK: Supple. Trachea midline. CHEST/LUNGS: Few crackles auscultated bilaterally, breathing nonlabored, on sup plemental O2, no wheezes HEART/CARDIOVASCULAR: Regular in rate and rhythm. S1 and S2 positive. ABDOMEN: Abdomen is soft, nontender. Patient has normal bowel sounds. SKIN: There is no rash. Warm and dry. NEURO: No focal motor deficit. Follows command. MUSCULOSKELETAL: No joint effusion or tenderness. EXTRIMITY: No edema, no cyanosis or clubbing. PSYCH: Cooperative. - Constitutional Vitals: Vital Signs - 12hr 02/28/21 02/28/21 02/28/21 05:07 09:43 09:44 Temperature 98.1 F Pulse Rate 68 62 62 Respiratory 18 Rate Blood Pressure 127/70 141/68 141/68 O2 Sat by Pulse 100 Oximetry 02/28/21 12:11 Temperature 98.4 F Pulse Rate 62 Respiratory 18 Rate Blood Pressure 135/70 O2 Sat by Pulse 94 Oximetry - Labs CBC & Chem 7: 03/01/21 05:32 02/27/21 14:46 Labs: Abnormal lab results 02/27/21 02/27/21 02/27/21 Range/Units 14:46 17:12 21:41 Glucose 459 H (65-100) mg/dL POC Glucose 332 H 437 H (70-105) mg/dL 02/28/21 02/28/21 Range/Units 07:46 12:12 Glucose (65-100) mg/dL POC Glucose 336 H 474 H (70-105) mg/dL HEART Score - HEART Score Age: 45-65 Risk factors: 1-2 risk factors Troponin: Troponin T < 0.010 ng/mL (0.00-0.029) 02/26/21 09:58 Troponin: < normal limit - Critical Actions Critical Actions: 0-3 pts:0.9-1.7%risk of adverse cardiac event.Candidate for discharge
[2021-02-28] MEDS: AZITHROMYCIN/NS 500 MG/250 ML 500 MG/250 ML BAG IV SCH (17:46)
[2021-02-28] MEDS ORDERED: INSULIN GLARGINE 100 UNITS/ML SUB-Q SCH (22:00)
[2021-03-01 06:19] LABS: Basophils # (Auto) 0.1 K/mm3 (0.0-0.1); Basophils % (Auto) 0.4 % (0.0-1.8); Eosinophils # (Auto) 0.1 K/mm3 (0.0-0.4); Eosinophils % (Auto) 0.7 % (0.0-4.3); Hematocrit 34.5 % (30.3-42.9); Hemoglobin 11.3 gm/dl (10.1-14.3); Lymphocytes # (Auto) 4.3 K/mm3 (1.2-5.4); Lymphocytes % (Auto) 33.8 % (13.4-35.0); Mean Corpuscular HGB Conc 33 % (30-34); Mean Corpuscular Volume 85 fl (79-97); Monocytes # (Auto) 0.7 K/mm3 (0.0-0.8); Monocytes % (Auto) 5.4 % (0.0-7.3); Platelet Count 272 K/mm3 (140-440); Red Blood Count 4.05 M/mm3 (3.65-5.03); Red Cell Distribution Width 15.2 % (13.2-15.2)
[2021-03-01] MEDS: INSULIN LISPRO 100 UNIT/ML SUB-Q SCH ×2 (09:00→12:18)
[2021-03-01] MEDS: metFORMIN XR 500MG TAB PO SCH (10:00)
[2021-03-01] MEDS: FAMOTIDINE 20 MG TAB PO SCH (10:01)
[2021-03-01] MEDS: ENOXAPARIN 40 MG/0.4 ML INJ SUB-Q SCH (10:01)
[2021-03-01] MEDS: cefTRIAXone/NS 2 GM/100 ML 2 GM/100 ML BAG IV SCH (10:02)
[2021-03-01] MEDS: carvediloL 12.5 MG TAB PO SCH (10:31)
[2021-03-01] MEDS: amLODIPine 10 MG TAB PO SCH (10:31)
[2021-03-01] MEDS: INSULIN GLARGINE 100 UNITS/ML SUB-Q SCH (11:30)
--- NOTE | 2021-03-01 13:44 | Discharge Summary ---
Providers - Providers Date of Admission: 02/26/21 15:14 Date of discharge: 03/01/21 Attending physician: FANG COKER 02/26/21 20:57 Consult to Physician [CONS] Routine Comment: Consulting Provider: AZ OGLESBY Physician Instructions: Reason For Exam: Sepsis, pneumonia 02/28/21 10:45 Physical Therapy Evaluation and Treat [CONS] Routine Comment: Reason For Exam: Debility Primary care physician: A[employer]LET[employer] FIELD CUSTODIAN Hospitalization Condition: Stable Pertinent studies: CXT, CT chest Hospital course: 55-year-old female with history of hypertension and insulin-dependent diabetes comes in for generalized body aches fever and chills for 1 day. Patient had a Covid vaccine in August. Patient was tested for Covid last week and was negative. In the ER patient was hypoxic with oxygen saturation of around 88% on room air and chest x-ray was positive for left upper lobe pneumonia. Labs revealed leukocytosis of 18.4, D-dimer 603, HbA1c 11.9, CRP 25.7, procalcitonin 4.03, ferritin 124.6. Patient was placed on empiric abx, supplemental O2, tested for COVID19. His COVID test was negative. Her symptoms improved with supportive care. She was then discharged home with total 5 days of abx and outpt followup. Disposition: 01 HOME / SELF CARE / HOMELESS Final Discharge Diagnosis (Prints w/discharge instructions): --Sepsis. -- Left upper lobe pneumonia. -- Suspected COVID-19 virus infection, ruled out. -- IDDM (insulin dependent diabetes mellitus). -- Hypertension Time spent for discharge: 34 minutes Core Measure Documentation - Palliative Care Palliative Care/ Comfort Measures: Not Applicable - Core Measures Any of the following diagnoses?: none Exam - Physical Exam Narrative exam: GENERAL: well-developed and well-nourished elderly -[place]alander female lying on bed appeared to be in no discomfort. HEENT: Normocephalic. Atraumatic. No conjunctival congestion or icterus. Patient has moist mucous membranes. NECK: Supple. Trachea midline. CHEST/LUNGS: breathing nonlabored, on supplemental O2, no wheezes HEART/CARDIOVASCULAR: Regular in rate and rhythm. S1 and S2 positive. ABDOMEN: Abdomen is soft, nontender. Patient has normal bowel sounds. SKIN: There is no rash. Warm and dry. NEURO: No focal motor deficit. Follows command. MUSCULOSKELETAL: No joint effusion or tenderness. EXTRIMITY: No edema, no cyanosis or clubbing. PSYCH: Cooperative. - Constitutional Vitals: Temp Pulse Resp BP Pulse Ox 98.0 F 54 L 18 149/70 97 03/01/21 11:14 03/01/21 11:14 03/01/21 11:14 03/01/21 11:14 03/01/21 11:14 Plan Activity: advance as tolerated Weight Bearing Status: Weight Bear as Tolerated Diet: low fat, low salt Special Instructions: record daily BP diary, record blood sugar diary Additional Instructions: Please continue empiric antibiotics for 5 more days. Need to repeat CT chest after completion of antibiotic as outpatient within 2 weeks to follow-up in the resolution of left upper lobe consolidation Follow up with: PRIMARY CAREMD [Primary Care Provider] - 3-5 Days RICARDA PEREZ MD [Staff Physician] - 7 Days Prescriptions: Insulin Glargine [Lantus VIAL] 20 units SUB-Q QHS 30 Days Insulin Lispro [Humalog 100 UNITS/ML Kwikpen] 4 units SQ TID 30 Days Insulin Glargine [Lantus VIAL] 30 units SUB-Q QAMDIAB 30 Days levoFLOXacin [Levaquin] 750 mg PO QDAY #5 tablet Albuterol Mdi (or & Nicu Only) [ProAir HFA Inhaler] 2 puff IH QID PRN #8.5 gram PRN Reason: Shortness Of Breath
[2021-03-01] MEDS: AZITHROMYCIN/NS 500 MG/250 ML 500 MG/250 ML BAG IV SCH (13:58)
--- NOTE | 2021-03-01 14:51 | Progress Note ---
Assessment and Plan Cultures: SARS CoV2 PCR: negative 02/26/2021 blood culture: No growth A/P: 65-year-old female with hypertension, diabetes admitted with generalized body aches, fever and chills. Also having diffuse chest pain and shortness of breath: #Sepsis, secondary to left-sided pneumonia: likely bacterial, community acquired. Labs revealed leukocytosis of 18.4, D-dimer 603, HbA1c 11.9, CRP 25.7, procalcitonin 4.03, ferritin 124.6. #Acute hypoxic respiratory failure: on NC. #Diabetes, uncontrolled Recs: afebrile, WBC better, now on room air. OK for discharge on PO abx to complete 5 days of therapy ID will sign off. Please call with questions. Tre Aguilera MD, FACP [facility] O: [phone] F: [phone] Subjective Date of service: 03/01/21 Interval history: Doing well. Has no complaints. On room air. No fever. Hoping to go home. Objective - Exam Narrative Exam: Physical Exam: Constitutional: Alert, cooperative. No acute distress Head, Ears, Nose: Normocephalic, atraumatic. External ears, nose normal Eyes: Conjunctivae/corneas clear. No icterus. No ptosis. Neck: Supple, no meningeal signs Cardiovascular: S1, S2 + Respiratory: AE fair b/l GI: Soft, non-tender; bowel sounds normal. No peritoneal signs Musculoskeletal: No pedal edema, no cyanosis. Skin: No rash or abscess Hem/Lymphatic: No palpable cervical or supraclavicular nodes. No lymphangitis Psych: Mood ok. Affect normal Neurological: Awake, alert, oriented. No gross abnormality - Constitutional Vitals: Vital Signs Temp Pulse Resp BP Pulse Ox 98.0 F 54 L 18 149/70 97 03/01/21 11:14 03/01/21 11:14 03/01/21 11:14 03/01/21 11:14 03/01/21 11:14 Temperature -Last 24 Hours Temperature 98.0 F Temperature 98.3 F Temperature 98.5 F Temperature 98.1 F - Labs CBC & Chem 7: 03/01/21 05:32 02/27/21 14:46 Labs: Abnormal lab results 02/28/21 02/28/21 03/01/21 Range/Units 16:58 20:37 05:32 WBC 12.6 H (4.5-11.0) K/mm3 POC Glucose 126 H 153 H (70-105) mg/dL 03/01/21 03/01/21 Range/Units 07:41 11:12 WBC (4.5-11.0) K/mm3 POC Glucose 124 H 239 H (70-105) mg/dL
[2021-03-01 18:28] VITALS: BP 131/72
--- NOTE | 2021-03-05 13:56 | Electrocardiograph Report ---
[facility] Test Date: 2021-02-26 Test Time: 08:58:10 Pat Name: JOLIE SANCHEZ Department: Room: A377 Gender: F Seo Analyst: CATALINA : [id number] Requested By: NETO PEREZ Order Number: [id number] Reading MD: Christiano Elder Measurements Intervals Vaughn Rate: 103 P: 30 SD: 156 QRS: 33 QRSD: 89 T: QT: 294 QTc: 385 Interpretive Statements Sinus tachycardia Left atrial enlargement Borderline T abnormalities, diffuse leads No previous ECG available for comparison Electronically Signed On 03-05-2021 13:56:35 EDT by Christiano Elder
== END 2021-03-01 20:20 | disposition home or self-care (01) | DRG 871 ==
LOC: ED 08:50 → 3A 15:14
PROVIDERS: ADMIT Internal Medicine; ATTEND Internal Medicine
DX: A41.9 Sepsis, unspecified organism (principal); J18.9 Pneumonia, unspecified organism; J96.01 Acute respiratory failure with hypoxia; Z20.822 Contact with and (suspected) exposure to COVID-19; E11.9 Type 2 diabetes mellitus without complications; I10 Essential (primary) hypertension
CPT/HCPCS: 36415; 71046; 71260; 80053; 81001; 82140; 82728; 82947; 82962; 83036; 83615; 83690; 84145; 84484; 85007; 85025; 85379; 86140; 87040; 87205; 93005; G0378; J0456; J0696; J1100; J1650; J1815; J7030; Q9967; U0003

== ENCOUNTER 2021-09-15 09:00 | Emergency (ER) | payer BC ==
[2021-09-15 09:53] VITALS: BP 166/79
== END 2021-09-15 16:41 | disposition home or self-care (01) ==
LOC: ED 09:00
DX: R51.9 Headache, unspecified (principal); Z53.21 Procedure and treatment not carried out due to patient leaving prior to being seen by health care provider